=== PATIENT | female | born 1965 | race Two or more races ===

== ENCOUNTER 2020-08-06 19:34 | Emergency (ER) | payer OTHER ==
[~2020-08-06] VITALS: Ht 182.9 cm; Wt 70.3 kg
[2020-08-06 19:35] VITALS: BP 141/84
== END 2020-08-06 21:53 | disposition left against medical advice (07) ==
LOC: ER 19:44
DX: H57.11 Ocular pain, right eye (principal); Z53.21 Procedure and treatment not carried out due to patient leaving prior to being seen by health care provider